=== PATIENT | male | born 1950 | race Caucasian/White ===

== ENCOUNTER 2016-11-14 16:53 | Observation (INO) ==
--- NOTE | 2016-11-14 19:01 | Emergency Department Note ---
Disposition Clinical Impression: Headache, Smoker, Hypertension, Chest pain, Renal insufficiency, Cerebrovascular disease, Dizziness, Leukocytosis, Abnormal EKG Disposition: Admitted As Inpatient Referrals: Diane Ambriz MD [Primary Care Provider] - Forms: ED Satisfaction Letter General Adult HPI - General Chief complaint: ED Headache Stated complaint: dizzy,headaches Time Seen by Provider: 11/14/16 19:00 Source: patient, family Limitations: no limitations - History of Present Illness HPI Narrative: 66-year-old male reports to the emergency department complaining of a headache. He states he started lisinopril yesterday. He has been diagnosed with high blood pressure and reports his pressure was 205/104. He states his average blood pressures been 180/100. The patient denies any head trauma neck stiffness rash or fever. No convulsions or confusion but he has been somewhat dizzy. There is no history of abdominal pain vomiting or diarrhea. He has had some intermittent chest pain which started about 2 weeks ago. It comes and goes it is dull. It does not necessarily radiate. There is no history of coughing up blood. The patient is not known to be anticoagulated. The patient has no history of coronary disease, there is no report of previous PE DVT or cancer. There is been no leg swelling or pain or syncope. The patient does not usually have chest pain. His headache is new and it started yesterday. There is no history of sudden onset or thunderclap headache. No neck pain. Pain Scale: 8 - Related Data Home Medications Medication Instructions Recorded Confirmed Lisinopril [Zestril] 40 mg PO HS 11/14/16 11/14/16 Allergies Allergy/AdvReac Type Severity Reaction Status Date / Time No Known Allergies Allergy Verified 11/14/16 17:04 All systems ED: reviewed and negative except as stated. Past Medical History - Past Medical History Medical history: Reports: hypertension - Social History Smoking Status: Current every day smoker Alcohol use: Reports: none Drug use: Reports: none Physical Exam - General Limitations: no limitations General appearance: alert, in no apparent distress - Head Head exam: atraumatic, normocephalic, normal inspection - Eye Eye exam: Present: normal appearance, PERRL, EOMI. Absent: scleral icterus, conjunctival injection, nystagmus, miosis, mydriasis - ENT ENT exam: normal exam, normal oropharynx, mucous membranes moist, TM's normal bilaterally, normal external ear exam - Neck Neck exam: Present: normal inspection, full ROM, trachea midline. Absent: tenderness - Chest Chest inspection: Present: symmetric chest wall rise - Respiratory Respiratory exam: Present: normal lung sounds bilaterally. Absent: respiratory distress - Cardiovascular Cardiovascular exam: Present: regular rate, normal rhythm, normal heart sounds - Abdominal Exam Abdominal exam: Present: soft, Non-Tender, normal bowel sounds. Absent: tenderness, distention, guarding, rebound, rigidity, pulsatile mass - Extremities Exam Extremities exam: Present: normal inspection, full ROM, normal capillary refill. Absent: tenderness, pedal edema, joint swelling, calf tenderness - Expanded Lower Extremity Exam Lower leg exam: Absent: Homans' sign Neurovascular/Tendon exam: Present: normal capillary refill. Absent: motor deficit, sensory deficit, tendon deficit, extremity cold to touch, pallor - Back Exam Back exam: Present: normal inspection, full ROM. Absent: tenderness, CVA tenderness (R), CVA tenderness (L), vertebral tenderness - Neurological Exam Neurological exam: Present: alert, oriented X3, CN II-XII intact. Absent: motor sensory deficit - Psychiatric Psychiatric exam: Present: normal affect, normal mood - Skin Skin exam: Present: warm, dry, intact, normal color. Absent: rash, cyanosis, diaphoresis, erythema, pallor, mottled Course Vital Signs Temperature 98.2 F 11/14/16 17:01 Pulse Rate 80 11/14/16 17:01 Respiratory Rate 16 11/14/16 17:01 Blood Pressure 142/92 11/14/16 17:01 O2 Sat by Pulse Oximetry 97 11/14/16 17:01 Temperature 98.2 F 11/14/16 17:01 Pulse Rate 66 11/14/16 20:50 Respiratory Rate 20 11/14/16 20:50 Blood Pressure 158/94 11/14/16 20:50 O2 Sat by Pulse Oximetry 98 11/14/16 19:13 Oxygen Delivery Oxygen Delivery Room Air Medical Decision Making - [facility] Narrative Medical decision making narrative: Patient is elderly, has a history of hypertension, is a smoker, and is been experienced and chest pain. The patient has had no previous coronary studies in the past including stress test or heart catheter. He was given an aspirin in the ED. Additional history is brought forward by his , the patient has been dizzy and somewhat confused today. He did not have any positional related dizziness. There is no history of dejah dysarthria or unilateral arm or leg weakness or numbness. No head motion related dizziness. The patient has demonstrated cerebrovascular disease on his CT scan. I do not suspect meningismus at this time. The patient's neck is supple and he is afebrile. Based on the patient's apparent new onset symptomatology including dizziness, progressive chest pain over the last few weeks, age, hypertension, renal insufficiency, Adan ptosis, and nicotine dependence, I thought it would be appropriate to admit the patient the hospital for further evaluation. I discussed the case with the hospitalist on-call who is accepted the patient to their care. - Lab Data Lab results reviewed: Yes I reviewed the patient's lab results. Result diagrams: 11/14/16 19:38 11/14/16 19:38 Lab Results 11/14/16 11/14/16 11/14/16 Range/Units 19:38 19:38 19:38 WBC 18.8 H (4.3-11.1) K/mcL RBC 4.70 (4.19-5.50) M/mcL Hgb 14.8 (12.9-16.9) g/dL Hct 43.2 (37.5-50.1) % MCV 91.9 (83.0-100.0) fL MCH 31.5 (28.0-33.3) pg MCHC 34.3 (31.6-35.5) g/dL RDW 13.0 (11.5-14.5) % Plt Count 284 (140-400) K/mcL MPV 10.1 (9.4-12.4) fL Immature Gran % 0.4 (0-4) % Seg Neutrophils % 64.1 % Lymphocytes % 28.6 % Monocytes % 5.3 % Eosinophils % 1.1 % Basophils % 0.5 % Neutrophils # 12.0 H (1.6-8.9) K/mcL Lymphocytes # 5.4 H (0.6-4.6) K/mcL Monocytes # 1.0 (0.0-1.3) K/mcL Eosinophils # 0.2 (0.0-0.6) K/mcL Basophils # 0.1 (0.0-0.2) K/mcL PT 11.6 (9.4-12.1) Seconds INR 1.1 APTT 32.9 (26.0-36.0) Seconds Sodium 138 (136-145) mEq/L Potassium 4.3 (3.5-4.5) mEq/L Chloride 103 (98-109) mEq/L Carbon Dioxide 25 (19-29) mEq/L BUN 24 (8-26) mg/dL Creatinine 1.70 H (0.72-1.25) mg/dL Est GFR ( Amer) 49 L (> 60) Est GFR (Non-Af Amer) 41 L (> 60) BUN/Creatinine Ratio 14 (6-26) Glucose 78 (70-99) mg/dL Calculated Osmolality 289 (280-300) Calcium 9.4 (8.6-10.8) mg/dL Total Bilirubin 0.5 (0.2-1.2) mg/dL Direct Bilirubin 0.2 (0.0-0.5) mg/dL Indirect Bilirubin 0.3 (0.0-1.2) mg/dL AST 19 (5-34) Units/L ALT 21 (0-55) Units/L Alkaline Phosphatase 95 (38-126) Units/L Troponin I (0-0.03) ng/mL C-Reactive Protein 3 (Less than 5) mg/L Serum Total Protein 7.4 (6.0-8.3) g/dL Albumin 3.9 (3.5-5.0) g/dL Globulin 3.5 (2.4-3.5) g/dL Albumin/Globulin Ratio 1.1 (1.1-2.2) Lipase (8-78) Units/L 11/14/16 11/14/16 Range/Units 19:38 19:38 WBC (4.3-11.1) K/mcL RBC (4.19-5.50) M/mcL Hgb (12.9-16.9) g/dL Hct (37.5-50.1) % MCV (83.0-100.0) fL MCH (28.0-33.3) pg MCHC (31.6-35.5) g/dL RDW (11.5-14.5) % Plt Count (140-400) K/mcL MPV (9.4-12.4) fL Immature Gran % (0-4) % Seg Neutrophils % % Lymphocytes % % Monocytes % % Eosinophils % % Basophils % % Neutrophils # (1.6-8.9) K/mcL Lymphocytes # (0.6-4.6) K/mcL Monocytes # (0.0-1.3) K/mcL Eosinophils # (0.0-0.6) K/mcL Basophils # (0.0-0.2) K/mcL PT (9.4-12.1) Seconds INR APTT (26.0-36.0) Seconds Sodium (136-145) mEq/L Potassium (3.5-4.5) mEq/L Chloride (98-109) mEq/L Carbon Dioxide (19-29) mEq/L BUN (8-26) mg/dL Creatinine (0.72-1.25) mg/dL Est GFR ( Amer) (> 60) Est GFR (Non-Af Amer) (> 60) BUN/Creatinine Ratio (6-26) Glucose (70-99) mg/dL Calculated Osmolality (280-300) Calcium (8.6-10.8) mg/dL Total Bilirubin (0.2-1.2) mg/dL Direct Bilirubin (0.0-0.5) mg/dL Indirect Bilirubin (0.0-1.2) mg/dL AST (5-34) Units/L ALT (0-55) Units/L Alkaline Phosphatase (38-126) Units/L Troponin I 0.01 (0-0.03) ng/mL C-Reactive Protein (Less than 5) mg/L Serum Total Protein (6.0-8.3) g/dL Albumin (3.5-5.0) g/dL Globulin (2.4-3.5) g/dL Albumin/Globulin Ratio (1.1-2.2) Lipase 35 (8-78) Units/L - Radiology Data Radiology results reviewed: Yes I reviewed the patient's radiology results. - EKG Data EKG #1 EKG shows normal: sinus rhythm Rate: normal [place]/QRS: RBBB Interpretation: other (Abnormal EKG)
[2016-11-14 19:59] LABS: Basophils # 0.1 K/mcL (0.0-0.2); Basophils % 0.5 %; Eosinophils # 0.2 K/mcL (0.0-0.6); Eosinophils % 1.1 %; Hematocrit 43.2 % (37.5-50.1); Hemoglobin 14.8 g/dL (12.9-16.9); Immature Granulocytes % 0.4 % (0-4); Lymphocytes # 5.4 K/mcL (0.6-4.6); Lymphocytes % 28.6 %; Mean Corpuscular HGB Conc 34.3 g/dL (31.6-35.5); Mean Corpuscular Hemoglobin 31.5 pg (28.0-33.3); Mean Corpuscular Volume 91.9 fL (83.0-100.0); Mean Platelet Volume 10.1 fL (9.4-12.4); Monocytes % 5.3 %; Platelet Count 284 K/mcL (140-400); Segmented Neutrophils % 64.1 %
[2016-11-14 20:06] LABS: INR 1.1; Prothrombin Time 11.6 Seconds (9.4-12.1)
[2016-11-14 20:09] LABS: Activated Partial Thrombo Time 32.9 Seconds (26.0-36.0)
[2016-11-14 20:14] LABS: Albumin 3.9 g/dL (3.5-5.0); Albumin/Globulin Ratio 1.1 (1.1-2.2); Bilirubin,Direct 0.2 mg/dL (0.0-0.5); Bilirubin,Indirect 0.3 mg/dL (0.0-1.2); Bilirubin,Total 0.5 mg/dL (0.2-1.2); Calcium 9.4 mg/dL (8.6-10.8); Globulin 3.5 g/dL (2.4-3.5); Potassium 4.3 mEq/L (3.5-4.5); Total Protein 7.4 g/dL (6.0-8.3)
[2016-11-14] MEDS: Aspirin 325 MG TABLET PO ONE (20:32)
--- NOTE | 2016-11-15 00:57 | Internal Med History&Physical ---
<Roman Hernandez - Last Filed: 11/15/16 02:49> Date of Encounter: 11/15/16 Time of Encounter: 00:40 Assessment and Plan (1) Neurological symptoms Current visit: Yes Status: Acute Patient had episode of neurologic episode this afternoon, that resolved after a couple hours. He describes the episode as having lost coordination, feeling "fuzzy," and being dizzy while simultaneously having a headache. Although this episode resolved spontaneously, there is continued concern for neurovascular disease given that evidence of prior lacunar infarcts were seen on CT examination of his brain. Likely, patient long standing hypertension is contributory. Will continue patient on aspirin We will start low-dose metoprolol at 12.5 mg twice a day We will obtain carotid Dopplers, echocardiogram, and noncontrast MRI of patient head We will keep patient on telemetry to monitor for potential arrhythmias We will obtain swallow evaluation prior to starting meals We will consult neurology for assistance in future care/management patient (2) Cerebrovascular disease Current visit: Yes Status: Acute Patient has evidence of prior lacunar infarcts in the basal ganglia, as seen on CT examination of his head. Unsure as to what has caused these changes. Plan as above (3) Abnormal EKG Current visit: Yes Status: Acute Patient's EKG does show some changes compared to his last EKG done earlier in the month. The changes are mostly nonspecific stemming from his hypertension. Of note he appears so developed a right bundle branch block and some nonspecific voltage changes. We will obtain repeat troponin We will obtain echocardiogram (4) Leukocytosis Current visit: Yes Status: Acute Patient has leukocytosis with no identifiable reason. No complaints of urinary symptoms or respiratory symptoms. No signs of meningismus or complains of meningitis-like symptoms. No complaints of abdominal pain or gastrointestinal ailments. Patient has been afebrile during his time in the hospital. Leukocytosis with increased number of neutrophils could be result of stress reaction given stress of symptoms earlier today, but we will continue to monitor vitals, CBC, respirations as, will obtain UA We will give antibiotics as appropriate, will hold antibiotics currently Qualifiers: Leukocytosis type: unspecified Qualified Code(s): D72.829 - Elevated white blood cell count, unspecified (5) Renal insufficiency Current visit: Yes Status: Acute Patient presents with elevated serum creatinine 1.7, previously his creatinine had been 1.25. Patient denies any sort of recent sickness or decreased oral intake, lab findings are not consistent with prerenal causes of EDWARD. Current acute kidney injury could be result of recently started lisinopril. We will hold normal lisinopril We will obtain urinalysis to further evaluate (6) DVT prophylaxis Current visit: Yes Status: Acute 5000 units heparin subcutaneous 3 times a day Internal Medicine - H&P: HPI Chief complaint: Neuro Symptoms Admitted From: Home Plans for Post Hospital Care: Home History of present illness: Mr. Bhat is a 66 year old male with prior medical history of newly diagnosed hypertension who presented to [facility] on the afternoon of 11/14/16 due to the onset of some neurological symptoms that day. He states that he had developed some "fuzziness," lightheadedness, and had a loss of coordination earlier that day at work. He states that shortly after lunch, he was unable to clock back into work because he had lost the coordination to operate the clock. During this time he states that he had developed a headache that was located in the right frontal area, near his eye that was 8/10 in severity, felt like an ache, and went away spontaneously 2 hours later. He denies syncope, pre-syncope, photophobia, neck pain or stiffness, or other changes in his vision. He denies chest pain, palpitations, or shortness of breath. His neurological symptoms all resolved after 2 hours, spontaneously. He states that he had recently been seen by his PCP and started on lisinopril 2 days prior to this event. His PCP had started lisinopril due to the concern that he was having elevated blood pressures when evaluated on a home blood pressure testing. He states that his average blood pressure at home was 180 systolic and as high as 200. He denies having ever taken Lisinopril before. In review of the patient outpatient record, he had apparently taken lisinopril/hctz , but had stopped in 2011 due to development of chest pain. Past Med Surg Social Fam HX - Past Medical History Medical history: hypertension - Past Surgical History Surgical History: herniorrhaphy (when 4) - Social History Smoking Status: Current every day smoker (0.5 ppd x 40 years) Smokeless Tobacco Status: No Alcohol use: none Drug use: none - Family History Father Living Status: Hx Family Respiratory Disorders: Yes (emphysema) Mother Living Status: Hx Family Cardiac Disorders: Yes Hx Family Endocrine Disorder: Yes (DM) Internal Medicine - H&P: Meds Lisinopril [Zestril] 40 mg PO HS 11/14/16 [History] Allergies No Known Allergies Allergy (Verified 11/14/16 17:04) - Constitutional Constitutional: no chills, no fatigue, no fever(s), no falls, no weakness - EENT Eyes: blurry vision, no diplopia, no loss of vision, no photophobia, no seeing flashes Nose, mouth and throat: no dysphagia, no nasal discharge, no neck pain, no nose pain, no sore throat - Cardiovascular Cardiovascular ROS IM: as per HPI, lightheadedness, no chest pain, no diaphoresis, no dyspnea, no palpitations, no syncope - Respiratory Respiratory: no cough, no dyspnea, no wheezing, no excessive phlegm production - Gastrointestinal Gastrointestinal: no abdominal pain, no diarrhea, no hematemesis, no hematochezia, no melena, no nausea, no vomiting - Musculoskeletal Musculoskeletal ROS IM: no numbness, no tingling - Integumentary Integumentary IM: no rash, no unusual bruising - Neurological Neurological ROS: as per HPI, disequilibrium, dizziness, headache(s), lack of coordination, no confusion, no convulsions, no focal weakness, no loss of vision , no numbness, no tingling, no tremor(s), no vertigo, no weakness - Hematologic/Lymphatic Hematologic/Lymphatic: no easy bruising - Constitutional Vitals: Temp Pulse Resp BP Pulse Ox 97.9 F 70 16 165/84 96 11/14/16 22:58 11/14/16 22:58 11/14/16 22:58 11/14/16 22:58 11/14/16 22:58 Exam: General: Cooperative, pleasant, no acute distress, alert and oriented 3, answers questions appropriately Head: Normocephalic, atraumatic Eye: Conjunctiva pink, sclera anicteric, EOMI, PERRLA Neck: Supple, trachea midline, mucosa moist, no erythema or exudates in the oral pharynx Respiratory: No accessory muscle usage, clear to auscultation bilaterally, no wheezes/rhonchi/rales appreciated Cardiovascular: Regular rate and rhythm, S1 and S2 present, no murmurs/rubs/ gallops/clicks appreciated GI/abdominal: Nondistended, nontender, soft, normal bowel sounds, no peritoneal signs Extremities: No calf tenderness, noncyanotic, no pedal edema appreciated, warm, lower extremity pulses palpable and symmetrical Neurological: Alert and oriented 3, no facial droop, no focal deficits, cranial nerves II through XII intact, rapid alternating movement fasts and with good kandis, finger-nose accurate without tremors, [id number] smooth and coordinated, no gait abnormalities observed, negative Romberg, muscle strength 5 /5 in both upper and lower extremities bilaterally, DTRs 3/5 in patellar and biceps tendons, sensation to light touch grossly intact in upper and lower extremities bilaterally Skin: Dry, intact, normal color Internal Med - H&P Results - Labs CBC & Chem 7: 11/14/16 19:38 11/14/16 19:38 - EKG Data -: EKG Interpreted by Myself EKG shows normal: sinus rhythm - Impressions Impressions Head CT 11/14/16 19:10 IMPRESSION: No evidence of intracranial hemorrhage or mass effect. Mild white matter changes and remote appearing bilateral basal ganglia lacunar infarcts. Findings most consistent with chronic small vessel ischemic disease. D/ / Nehal Salamanca MD / Nehal Salamanca MD Interpreting Provider: Nehal Salamanca MD Chest X-Ray 11/14/16 19:11 IMPRESSION: No acute cardiopulmonary abnormality. D/ / Ladarius Shah MD / Ladarius Shah MD Interpreting Provider: Ladarius Shah MD <Lurdes Gandhi R - Last Filed: 11/15/16 12:32> Date of Encounter: 11/15/16 Internal Medicine - H&P: HPI History of present illness: Mr. Bhat is a 66 year old male All Systems PM: A 10-system review of systems was performed and is negative for pertinent findings except as documented above in the HPI. - Constitutional Vitals: Temp Pulse Resp BP Pulse Ox 97.5 F L 72 16 147/87 95 11/15/16 11:00 11/15/16 11:00 11/15/16 11:00 11/15/16 11:00 11/15/16 11:00 Internal Med - H&P Results - Labs CBC & Chem 7: 11/15/16 03:01 11/15/16 03:01 Labs: Short CBC 11/15/16 Range/Units 03:01 WBC 11.7 H (4.3-11.1) K/mcL Hgb 13.2 D (12.9-16.9) g/dL Hct 38.8 (37.5-50.1) % Plt Count 249 (140-400) K/mcL Neutrophils # 6.4 (1.6-8.9) K/mcL BMP 11/15/16 03:01 Sodium 138 Potassium 3.9 Chloride 103 Carbon Dioxide 27 BUN 25 Creatinine 1.64 H Glucose 122 H Calcium 9.0 Cardiac Enzymes 11/15/16 Range/Units 03:01 Troponin I 0.01 (0-0.03) ng/mL - Impressions ITS Impressions Brain MRI 11/15/16 01:29 IMPRESSION: 7 mm area of acute infarction in the right basal ganglia, at the inferolateral border of the old right basal ganglia infarction. Small old infarction in the post lateral left thalamus. Mild chronic microvascular disease. Sinus mucosal disease. The results were called by Dr. Joseph Morales MD to nurse Ms. Lopez on 11/15/2016 at 11:12. D/ / Joseph Morales MD / Joseph Morales MD Interpreting Provider: Joseph Morales MD - Attending Attestation I performed a history and physical examination of the patient and discussed management with the resident . I reviewed the residents notes and agree with the documented findings and plan of care. 66 year old male with prior medical history of newly diagnosed hypertension, presented with fuzziness, light headedness, loss of co-ordination, headache. O/W : No gross localizing deficits. Cardiac: regular rate and rhythm. EKG: SR. Partial RBBB. CT head showed remote appearing basal ganglia lacunar infarcts. A/ P: Possible TIA: MRI brain; carotid Doppler; echo; neurology consult. Acute kidney injury: possibly related to lisinopril - hold.
[2016-11-15] MEDS ORDERED: Naloxone 0.4 MG/ML INJ IVP PRN (01:11)
[2016-11-15] MEDS ORDERED: Acetaminophen 325 MG TABLET PO PRN (01:11)
[2016-11-15] MEDS ORDERED: Ondansetron 4 MG/2 ML VIAL IVP PRN (01:11)
[2016-11-15 03:21] LABS: Chol/HDL Ratio 6.5 (0-4.9); Potassium 3.9 mEq/L (3.5-4.5)
[2016-11-15 03:38] LABS: Basophils # 0.1 K/mcL (0.0-0.2); Basophils % 0.7 %; Eosinophils # 0.3 K/mcL (0.0-0.6); Eosinophils % 2.6 %; Hematocrit 38.8 % (37.5-50.1); Immature Granulocytes % 0.3 % (0-4); Lymphocytes % 33.6 %; Mean Corpuscular Hemoglobin 31.5 pg (28.0-33.3); Mean Corpuscular Volume 92.6 fL (83.0-100.0); Mean Platelet Volume 10.3 fL (9.4-12.4); Monocytes % 8.2 %; Neutrophils # 6.4 K/mcL (1.6-8.9); Platelet Count 249 K/mcL (140-400); Red Blood Count 4.19 M/mcL (4.19-5.50); Segmented Neutrophils % 54.6 %
[2016-11-15 03:39] LABS: Hemoglobin 13.2 g/dL (12.9-16.9)
[2016-11-15] MEDS: *HR* Heparin 5,000 UNIT/ML VIAL SQ SCH ×2 (05:52→18:01)
[2016-11-15] MEDS ORDERED: Aspirin 81 MG TAB.CHEW PO SCH (09:00)
[2016-11-15] MEDS ORDERED: Nicotine 7 MG PATCH.TD24 TD SCH (09:00)
--- NOTE | 2016-11-15 13:55 | Neurology - Consult Note ---
Date of Encounter: 11/15/16 Time of Encounter: 13:52 Assessment and Plan (1) Cerebrovascular disease Current Visit: Yes Status: Acute This is likely lacunar small vessel infarct, related to Hypertensive status, DM and hyperlipidemia. Will complete stroke work, including carotid artery duplex, echocardiography. Continue Aspirin 325mg daily. risk factor modification for CVA. Needs statin therapy for hyperlipidemia. During acute phase of CVA, (7-10 days) Avoid aggressive hypertensive therapy to maintain cerebral perfusion. systolic 180, diastolic 95 can be tolerated. Please continue medical and supportive care History of Present Illness Chief complaint: headache and dizziness HPI: Mr. Bhat is a 66 year old male with newly diagnosed HTN, DM, hyperlipidemia who developed headaches and dizziness in light of elevated HTN. Was recently found to have very high BP and started lisinopril. Developed headache and dizziness but not vertiginous feeling. Initial CT of head showed no acute intracranial abnormality. MRI of brain showed small lacunar infarct at the right BG/internal capsule region. Past Med Surg Social Fam HX - Past Medical History Medical history: hypertension - Past Surgical History Surgical History: herniorrhaphy (when 4) - Social History Smoking Status: Current every day smoker (0.5 ppd x 40 years) Smokeless Tobacco Status: No Alcohol use: none Drug use: none - Family History Father Living Status: Hx Family Respiratory Disorders: Yes (emphysema) Mother Living Status: Hx Family Cardiac Disorders: Yes Hx Family Endocrine Disorder: Yes (DM) Medications and Allergies Lisinopril [Zestril] 40 mg PO HS 11/14/16 [History] Allergies No Known Allergies Allergy (Verified 11/14/16 17:04) All Systems: A 10-system review of systems was performed and is negative for pertinent findings except as documented above in the HPI. Physical Examination - Vital Signs Vital Signs: Initial Vital Signs Temp Pulse Resp BP Pulse Ox 98.2 F 80 16 142/92 97 11/14/16 17:01 11/14/16 17:01 11/14/16 17:01 11/14/16 17:01 11/14/16 17:01 - Constitutional General appearance: comfortable - Neurologic Sensorimotor examination: intact Detailed motor examination: grossly full strength in all extremities Motor examination - right side: 5/5: deltoids, biceps, triceps, wrist flexion, wrist extension, automation qa lead, hip flexors, tibialis Anterior, quadriceps, toe extension (EHL), plantarflexion Motor examination - left side: 5/5: deltoids, biceps, triceps, wrist flexion, wrist extension, hip flexors, automation qa lead, quadriceps, tibialis Anterior, toe extension (EHL), plantarflexion Detailed sensory examination: intact Reflex and gait examination: intact Reflexes: Biceps: 2+, Triceps: 2+, Brachioradialis: 2+, Patella: 2+, Achilles: 2 + Mental Status Examination: awake, alert, oriented to person, oriented to place, oriented to time, follows commands appropriately, answers questions appropriately, no agnosia, no aphasia, no aproxia Cranial nerve examination: PERRL, EOMI, visual fish intact, corneal reflexes brisk symmetrically, sensory to face intact, mastication intact, no facial asymmetry is present, no dysarthria, hearing is intact symmetrically, soft palate elevates bilaterally upon phonation, gag reflex intact, flexes SCM and trapezius muscles symmetrically with full power, tongue protrudes midline, no atrophy or facial fasiculations present Results - Laboratory Findings CBC and BMP: 11/15/16 03:01 11/15/16 03:01 Abnormal lab findings: Abnormal lab results WBC 11.7 K/mcL (4.3-11.1) H 11/15/16 03:01 Creatinine 1.64 mg/dL (0.72-1.25) H 11/15/16 03:01 Est GFR ( Amer) 51 (> 60) L 11/15/16 03:01 Est GFR (Non-Af Amer) 42 (> 60) L 11/15/16 03:01 Glucose 122 mg/dL (70-99) H 11/15/16 03:01 LDL Cholesterol, Calc 136 mg/dL (0-99) H 11/15/16 03:01 HDL Cholesterol 28 mg/dL (40-59) L 11/15/16 03:01 Cholesterol/HDL Ratio 6.5 (0-4.9) H 11/15/16 03:01 Consult Discharge Plan - Plan Referrals: Diane Ambriz MD [Primary Care Provider] -
[2016-11-15 15:20] VITALS: BP 147/83
--- NOTE | 2016-11-15 16:31 | ECHO - Doppler Report ---
Echo with Saline Contrast Name: Sam Bhat Date of Study: 11/15/2016 Date: 1950 Ht: 70.0 in Medical Record#: [id number] Age: 66 Wt: 178.0 lb Gender: Male BSA: 1.99 Order #: [id number] Location: [facility] Room #: 3B54 Reading Physician: Karen Carl DO Grease Maker: Rohith Tian RN Ordering Physician: Roman Hernandez DO Primary Physician: Diane Ambriz MD Indications: Non-specific EKG Changes, Hypertension, Neuro Symptoms Impressions: LVEF 55%. Normal left ventricular size and systolic function. There is evidence of mild diastolic dysfunction of the left ventricle. Normal right ventricular size and function. Mild aortic regurgitation. Mild mitral regurgitation. No pulmonary hypertension. No PFO with saline contrast. Left Ventricular Wall Motion: Rest Echo Findings All wall segments showed normal motion. Findings: Study Quality * Technically adequate exam. ECG Findings * Sinus bradycardia. Left Ventricle * LVEF 55%. * Normal LV chamber size, wall thickness and function. * Mild left ventricular diastolic dysfunction. Aortic Valve * Mild aortic regurgitation. * Aortic valve not well visualized. * No aortic stenosis. Mitral Valve * Normal mitral valve structure. * No mitral stenosis. * Mild mitral regurgitation. Tricuspid Valve * Trace tricuspid regurgitation. * Normal tricuspid valve structure. * Estimated RA pressure is 3 mmHg. * Estimated RVSP is 20 mmHg. * No pulmonary hypertension. Pulmonic Valve * Pulmonic valve is not well visualized. * No pulmonic stenosis. * No pulmonic regurgitation. Pulmonary Artery * Pulmonary artery not well visualized. Right Ventricle * Normal right ventricular structure and function. Left Atrium * Normal left atrial size. Right Atrium * Normal right atrial size. Pericardium * There is no pericardial effusion present. Interatrial Septum * No evidence of PFO by color Doppler. * No evidence of PFO with agitated saline contrast. IVC * Normal IVC dimensions and inspiratory collapse. Aorta * Normally sized aortic root. History Hypertension History of Smoking Years 50 Packs 0.5 Family History of CAD 08/18/2011 a Previous Echo was performed. Contrast: Agitated saline 20 ml. Measurements: BP: 147/ 87 2D Normal Values IVSd: 1.00 cm 0.6 - 1.0 cm LVIDd: 4.40 cm 3.7 - 5.6 cm LVPWd: 1.00 cm 0.6 - 1.1 cm LVIDs: 3.30 cm 1.5 - 3.6 cm LA: 2.90 cm 2.0 - 4.0cm %FS: 25.00 cm >25 % LVOT Diam: 2.00 cm LA volume: 62 Mitral Valve Peak E:.60 m/sec Peak A:.61 m/sec E/A Ratio:1 Peak E' Lat Jose:5.95 cm/s Peak E' Med Jose:5.85 cm/s E/E' Lat Ratio:10.1 E/E' Med Ratio:10.3 Aortic Valve AI pressure Half-time: 495.00 msec Tricuspid Valve TV Regurg Peak Grad: 17.00mmHg TV Regurg Peak Jose: 2.05m/sec Updated by Karen Carl on 11/15/2016 4:26:01 PM electronically signed on 11/15/2016 4:27:20 PM with status of Final Wall Motion [place]: 1=Normal, 2=Hypokinesis, 3=Akinesis, 4=Dyskinesis, 5=Aneurysmal, 6=Hyperkinetic, X=Not Visualized (Blank)=Missing
--- NOTE | 2016-11-15 18:15 | Discharge Summary ---
Date of Encounter: 11/15/16 Time of Encounter: 17:30 - Discharge Diagnosis (1) CVA (cerebral vascular accident) Priority: Primary Status: Acute Comments: MRI revealing acute infarct right basal ganglia. Patient has been asymptomatic with no focal neurological weakness is present during this admission. Blood pressure controlled with lisinopril. We will add a statin and full dose aspirin. Follow-up outpatient. (2) Smoker Priority: Secondary Status: Chronic Comments: Continues to smoke about one half pack per day, declines counseling (3) Hypertension Priority: Secondary Status: Chronic Comments: Appears to be a relatively new diagnosis, started on lisinopril 2 days prior to arrival. Controlled, follow-up outpatient. Patient instructed to continue to check his blood pressure daily at the request of his primary care provider, but okay to have permissive hypertension over the next 7-10 days (4) Renal insufficiency Priority: Primary Status: Acute Comments: It appears as though the patient may have chronic kidney disease stage III however I only have readings over the past month and 3 months of reading a required to make a chronic diagnosis. Stable, follow-up outpatient (5) Dizziness Priority: Primary Status: Resolved (6) Leukocytosis Priority: Primary Status: Acute Comments: Likely stress related, nearly resolved. No signs of active infection. Qualifiers: Leukocytosis type: unspecified Qualified Code(s): D72.829 - Elevated white blood cell count, unspecified (7) Abnormal EKG Priority: Primary Status: Acute Comments: Follow-up outpatient. Likely secondary to uncontrolled hypertension. Echocardiogram unremarkable with ejection fraction of 55% and mild diastolic dysfunction. Patient euvolemic on examination. (8) Neurological symptoms Priority: Primary Status: Resolved (9) DVT prophylaxis Priority: Primary Status: Acute Comments: Subcutaneous heparin while admitted - Discharge Medications Prescriptions: Aspirin 325 mg PO DAILY #30 tablet Rosuvastatin [Crestor] 20 mg PO HS #30 tablet Home Medications: Lisinopril [Zestril] 40 mg PO HS 11/14/16 [History] Aspirin 325 mg PO DAILY #30 tablet 11/15/16 [Rx] Rosuvastatin [Crestor] 20 mg PO HS #30 tablet 11/15/16 [Rx] Allergies/Adverse Reactions: Allergies No Known Allergies Allergy (Verified 11/14/16 17:04) Procedures/tests Complete & Pending: Procedures Performed prior 72 hours Category Date Time Status MR head/brain wo con [MR] Routine MRI 11/15/16 01:29 Completed EV carotid duplex imaging BI Routine Y 11/15/16 01:29 Completed EV echocardiogram Routine Y 11/15/16 01:29 Completed Date of admission: 11/14/16 21:38 Primary care physician: Diane Ambriz MD Consults: 11/15/16 05:10 Consult to Neurology [CONS] Routine Consulting Provider: Neurology [facility] Reason for Consult: Concern for continued care regarding patient TIA-like symptoms with prior evidence of Lacunar infarcts on CT Call Completed: No Discharging clinician: Chante Cook Anticipated date of discharge: 11/15/16 - Patient Status Disposition: Home, Self-Care Condition: Good Functional capacity at discharge: independent ambulation Overall status at discharge: patient is back to baseline - Discharge Instructions Follow Up With: Diane Ambriz MD [Primary Care Provider] - 11/30/16 12:50 pm Additional Instructions: Follow-up with primary care provider as scheduled - Diet and Activity Activity: increase activity as tolerated Diet: low fat, low cholesterol, low salt diet Hospital course: Mr. Bhat is a 66 year old male with past medical history of newly diagnosed hypertension and tobacco abuse. Patient presented to the emergency department chief complaint fussiness, lightheadedness, and loss of coordination while at work earlier on in the day. 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 Patient also states he developed a headache in his right frontal area that went away spontaneously after 2 hours. He denied syncope, presyncope, neck pain or stiffness, changes in vision. He denied chest pain, palpitations, shortness of breath. His symptoms resolved after 2 hours spontaneously. He was seen by his primary care providers 2 days prior to this event started on lisinopril. Workup in the emergency department unremarkable. Head CT negative. Chest x- ray negative. Patient was admitted to the hospitalist service for further evaluation and management. Patient remained asymptomatic throughout this admission with no focal neurological weaknesses or deficits present on examination. MRI did reveal an acute infarct to the right basal ganglia. Neurology was brought on board who recommended a full strength aspirin, statin, and permissive hypertension over the next 7-10 days. Patient was alert and oriented 3 throughout this admission and had an upright and steady gait. He was educated on smoking cessation which she declined. He did have some acute EKG changes however his echocardiogram was unremarkable with ejection fraction of 55% and mild diastolic dysfunction. Patient euvolemic on examination and denied chest pain or shortness of breath throughout this admission. He was discharged home in stable condition with close outpatient follow-up recommended. Of note, carotid duplex pending at time of discharge, follow-up with primary care provider for results. ITS Impressions Head CT 11/14/16 19:10 IMPRESSION: No evidence of intracranial hemorrhage or mass effect. Mild white matter changes and remote appearing bilateral basal ganglia lacunar infarcts. Findings most consistent with chronic small vessel ischemic disease. D/ / Nehal Salamanca MD / Nehal Salamanca MD Interpreting Provider: Nehal Salamanca MD Chest X-Ray 11/14/16 19:11 IMPRESSION: No acute cardiopulmonary abnormality. D/T: 11/4016 19:39:43 / Ladarius Shah MD / Ladarius Shah MD Interpreting Provider: Ladarius Shah MD Brain MRI 11/15/16 01:29 IMPRESSION: 7 mm area of acute infarction in the right basal ganglia, at the inferolateral border of the old right basal ganglia infarction. Small old infarction in the post lateral left thalamus. Mild chronic microvascular disease. Sinus mucosal disease. The results were called by Dr. Joseph Morales MD to nurse Ms. Lopez on 11/15/2016 at 11:12. D/ / Joseph Morales MD / Joseph Morales MD Interpreting Provider: Joseph Morales MD Echo with saline contrast impressions: LVEF 55%. Normal left ventricular size and systolic function. There is evidence of mild diastolic dysfunction of the left ventricle. Normal right ventricular size and function. Mild aortic regurgitation. Mild mitral regurgitation. No pulmonary hypertension. No PFO with saline contrast. - Time Spent with Patient Total time spent providing and/or coordinating discharge services: - Constitutional Vitals: Temp Pulse Resp BP Pulse Ox 97.5 F L 53 16 147/83 97 11/15/16 15:19 11/15/16 15:19 11/15/16 15:19 11/15/16 15:19 11/15/16 15:19 General appearance: Present: A&O X 3, pleasant, no acute distress, answers questions appropriately - Head Head exam: Present: atraumatic, normocephalic - Eye Eye exam: Present: PERRL, conjuntiva pink, sclera anicteric Pupils: Present: PERRL - Neck Neck exam general surgery: Present: supple, trachea midline. Absent: lymphadenopathy - Respiratory Respiratory exam: Present: CTAB. Absent: accessory muscle use, rales, respiratory distress, rhonchi, wheezes - Cardiovascular Cardiovascular exam: Present: RRR, +S1, +S2. Absent: diastolic murmur, gallop, rubs, systolic murmur - GI/Abdominal GI/Abdominal exam: Present: normal bowel sounds, soft, no peritoneal signs. Absent: distended, tenderness - Extremities Exam Extremities exam: Present: warm, radial pulses palpable and symetrical. Absent : calf tenderness, cyanotic, pedal edema - Neurological Exam Neurological exam: Present: alert, CN II-XII intact, normal gait, oriented X3, no focal deficits, strengths equal and symetr throughout. Absent: pronater drift, facial droop, speech deficit - Expanded Neurological Exam Neurological exam expanded: Present: protecting the airway Patient oriented to: Present: person, place, time Speech: Present: fluid speech Cranial Nerves: EOM's intact PM: Normal, gag reflex PM: Normal Neuro motor strength exam: LUE: 5, RUE: 5, LLE: 5, RLE: 5 Coma Scale Eye Opening: Spontaneous Coma Scale Motor Response: Obeys Commands Coma Scale Verbal Response: Oriented Coma Scale Total: 15 - Skin Skin exam: Present: dry, intact, normal color, warm
--- NOTE | 2016-11-16 05:17 | Electrocardiograph Report ---
[place] [id number] Test Date: 2016-11-14 Pat Name: Sam [place] Department: 104 Room: 3B54 Gender: M Chief Of Safety And Protection: JOSÉ : 1950 Requested By: Matt Silva Order Number: [id number] Reading MD: Trip Webb MD Measurements Intervals [place] Rate: 65 P: 71 HI: 153 QRS: -69 QRSD: 115 T: 75 QT: 422 QTc: 433 Interpretive Statements SINUS RHYTHM INCOMPLETE RIGHT BUNDLE BRANCH BLOCK LEFT ANTERIOR FASCICULAR BLOCK Electronically Signed On 11-16-2016 5:15:58 EDT by Trip Webb MD
--- NOTE | 2016-11-16 12:58 | Carotid Imaging Report ---
Carotid Duplex Patient Name:Sam Bhat Order Number:[id number] Procedure Date:11/15/2016 Date:1950ge:66 yrs Gender:Male Rt.BP:147 / 87 mmHgHeart Rate: Location:[facility] Room #: [facility] [employer] Installer:Rohith Tian RN Referring MD:Roman Hernandez DO silo tender:Diane Ambriz MD Reading MD:Bhaskar Hernandez MD , FACS Primary Indications:Neuro Symptoms Risk Factors Yes/No Hypertension Yes Diabetes No Hypercholesterolemia No Smoking Current Yes Hx of TIA No Hx of CVA No Anticoagulants No Hx of CAD/PTCA No Previous Vascular Surgery No Impressions: Findings: Bilateral carotid system are essentially normal. Recommendations: Test completed on 11/15/2016 at 1:50:00 pm. Findings Carotid Duplex: Right: The right proximal common carotid artery has a PSV of 64 cm/s and a EDV of 15 cm/s. The right mid common carotid artery has a PSV of 54 cm/s and a EDV of 16 cm/s. The right distal common carotid artery has a PSV of 44 cm/s and a EDV of 13 cm/s. There is nonstenotic plaque in the right bifurcation with a PSV of 43 cm/s and a EDV of 13 cm/s. There is smooth homogeneous plaque. The right proximal internal carotid artery has a PSV of 71 cm/s and a EDV of 25 cm/s. The right mid internal carotid artery has a PSV of 77 cm/s and a EDV of 23 cm/s. The right distal internal carotid artery has a PSV of 71 cm/s and a EDV of 26 cm/s. The right eca has a PSV of 65 cm/s and a EDV of 13 cm/s. The right vertebral artery has a PSV of 43 cm/s and a EDV of 11 cm/s. Left: The left proximal common carotid artery has a PSV of 70 cm/s and a EDV of 15 cm/s. The left mid common carotid artery has a PSV of 60 cm/s and a EDV of 18 cm/s. The left distal common carotid artery has a PSV of 62 cm/s and a EDV of 18 cm/s. There is nonstenotic plaque in the left bifurcation with a PSV of 47 cm/s and a EDV of 16 cm/s. There is smooth homogeneous plaque. The left proximal internal carotid artery has a PSV of 72 cm/s and a EDV of 27 cm/s. The left mid internal carotid artery has a PSV of 89 cm/s and a EDV of 34 cm/s. The left distal internal carotid artery has a PSV of 116 cm/s and a EDV of 41 cm/s. The left eca has a PSV of 70 cm/s and a EDV of 18 cm/s. The left vertebral artery has a PSV of 61 cm/s and a EDV of 19 cm/s. Prior Study: No prior study available for comparison. Carotid Results Right PSV EDV Assessment Proximal CCA 64 15 Normal Mid CCA 54 16 Normal Distal CCA 44 13 Normal Bifurcation 43 13 Non Stenotic Plaque Proximal ICA 71 25 Normal Mid ICA 77 23 Normal Distal ICA 71 26 Normal ECA 65 13 Normal Vertebral Artery 43 11 Normal Left PSV EDV Assessment Proximal CCA 70 15 Normal Mid CCA 60 18 Normal Distal CCA 62 18 Normal Bifurcation 47 16 Non Stenotic Plaque Proximal ICA 72 27 Normal Mid ICA 89 34 Normal Distal ICA 116 41 Normal ECA 70 18 Normal Vertebral Artery 61 19 Normal Ratio's Right ICA/CCA Ratio: 1.43 ICA/CCA Values: 77/54 Left ICA/CCA Ratio: 1.93 ICA/CCA Values: 116/60 Updated by Bhaskar Hernandez MD, FACS on 11/16/2016 12:50:58 PM Bhaskar Hernandez MD electronically signed on 11/16/2016 12:51:31 PM with status of Final
== END 2016-11-15 20:04 | disposition home or self-care (01) ==
LOC: EMEROO 16:53 → 3BNU 16:53
PROVIDERS: ADMIT Nurse Practitioner Family; ATTEND Nurse Practitioner Family